=== PATIENT | female | born 1955 | race Caucasian/White ===

== ENCOUNTER 2023-04-27 08:25 | Emergency (ER) | payer MEDICARE, OTHER, SELFPAY ==
--- NOTE | 2023-04-27 08:40 | ED.URI ---
HPI - URI/Sore Throat General Chief Complaint: Upper Respiratory Infection Stated Complaint: SORE THROAT/COUGH/SNEEZIN Time Seen by Provider: 04/27/23 08:40 Source: patient Mode of arrival: ambulatory Limitations: no limitations History of Present Illness HPI Narrative: 67-year-old female presents with complaint of congestion, sneezing, sinus pressure, dry cough for 5 days. Afebrile. Reports really bad sore throat for the past 2 days. States sore throat is keeping her up at night. No chest pain or shortness of breath. Patient concerned she has a sinus infection. Took COVID test on 1st day of symptoms and was negative. All systems reviewed and negative except as noted above. Related Data Allergies Allergy/AdvReac Type Severity Reaction Status Date / Time ampicillin Allergy Severe HIVES Verified 04/27/23 08:41 loratadine Allergy Severe HEART Verified 04/27/23 08:41 RACING cephalexin Allergy Unknown HIVES Verified 04/27/23 08:41 Review of Systems Review of Systems: CONSTITUTIONAL: Denies fever, chills, or sweats. EYES: Denies visual changes, redness, or discharge. ENT: Reports rhinorrhea, congestion, sore throat. Denies otalgia. CARDIOVASCULAR: Denies chest pain, palpitations, or edema. RESPIRATORY: Reports cough. Denies dyspnea. GASTROINTESTINAL: Denies abdominal pain, nausea, vomiting, or diarrhea. GENITOURINARY: Denies dysuria or hematuria. SKIN: Denies rash or itching. MUSCULOSKELETAL: Denies back pain, joint pain, or myalgia. NEUROLOGIC: Denies headache, numbness, or weakness. PSYCHIATRIC: Denies anxiety or depression. All other systems reviewed are negative, except as documented in HPI. PMFSH Comments At time of signature, agree with nursing past medical, surgical, social and family history. There is no relevant family history pertinent to the presenting complaint. Exam Narrative: GENERAL: This is a well-nourished, well-developed patient, in no apparent distress. HEAD: normocephalic, atraumatic. EYES: PERRL. Sclera clear/white. Vision is grossly intact. EARS: External ears normal, auditory canals clear and without drainage, TMs normal without perforation. Hearing grossly intact. NOSE: External nose normal with clear nasal drainage, mild erythema to bilateral nares. THROAT: Mucous membranes moist, mild erythema to posterior pharynx without swelling or exudates. NECK: Neck supple, non-tender without lymphadenopathy, masses or thyromegaly. CARDIOVASCULAR: Regular rate and rhythm without murmurs, gallops, or rubs. RESPIRATORY: Clear to auscultation. Breath sounds equal bilaterally. No wheezes, rales, or rhonchi. SKIN: warm, Dry, intact with no suspicious lesions or rash, good texture and turgor. NEURO: awake, alert, and oriented to person, place and time. There were no obvious focal neurologic abnormalities. EXTREMITIES: No joint tenderness, effusion, or edema noted. Course Course Level of Care: Express Care Visit Vital Signs Vital signs: Vital Signs Temperature 37.2 C 04/27/23 08:45 Pulse Rate 76 04/27/23 08:45 Respiratory Rate 20 04/27/23 08:45 Blood Pressure 119/69 04/27/23 08:45 Pulse Oximetry 100 04/27/23 08:45 Oxygen Delivery Room Air 04/27/23 08:45 Temperature 37.2 C 04/27/23 08:45 Pulse Rate 76 04/27/23 08:45 Respiratory Rate 20 04/27/23 08:45 Blood Pressure 119/69 04/27/23 08:45 Pulse Oximetry 100 04/27/23 08:45 Oxygen Delivery Room Air 04/27/23 08:45 Reviewed MDM - URI/Sore Throat MDM Narrative Medical decision making narrative: Patient is aware of diagnosis, understands and agrees to treatment plan. Anticipatory guidance given. Patient agrees to follow-up as directed and is aware of reasons to seek care at the emergency department. Portions of this record may have been created with voice recognition software Negative flu and strep. Recommend treatment [id number] medications. Differential Diagnosis Differential diagnos
[2023-04-27 08:45] VITALS: BP 119/69; PULSE 76; RESP 20; TEMP 37.2; O2SAT 100
== END 2023-04-27 09:19 | disposition home or self-care (01) ==
PROVIDERS: Emergency Provider Nurse Practitioner Family
DX: J06.9 Acute upper respiratory infection, unspecified (principal); Z20.822 Contact with and (suspected) exposure to COVID-19
CPT/HCPCS: 87081; 87426; 87804; 87880; 99213; C9803; G0463